=== PATIENT | female | born 1950 | race Two or more races ===

== ENCOUNTER → 2018-05-12 11:22 | Outpatient (CLI) | payer OTHER | END | disposition home or self-care (01) | LOC: EKG 11:22 | DX: I10 Essential (primary) hypertension (principal); I25.10 Atherosclerotic heart disease of native coronary artery without angina pectoris ==

== ENCOUNTER 2018-05-17 07:43 | Outpatient (CLI) | payer OTHER | END 2018-05-17 08:00 | disposition home or self-care (01) | LOC: NUCLEAR 07:43 | DX: C21.0 Malignant neoplasm of anus, unspecified (principal); C21.1 Malignant neoplasm of anal canal | CPT/HCPCS: 78816; A9552 ==

== ENCOUNTER 2018-05-29 12:38 | Emergency (ER) | payer OTHER ==
[~2018-05-29] VITALS: Ht 154.9 cm; Wt 82.6 kg
== END 2018-05-29 16:47 | disposition home or self-care (01) ==
LOC: ER 12:38
DX: M62.830 Muscle spasm of back (principal); M54.5 Low back pain